=== PATIENT | female | born 1925 | race Caucasian/White ===

== ENCOUNTER 2016-04-05 22:01 | Emergency (ER) | payer OTHER, MEDICAID ==
[~2016-04-05] VITALS: Ht 160 cm; Wt 58.1 kg
[~2016-04-05 22:01] MED LIST: ALEN70TA2 OR; ASPI-247 OR; FAMO40TA49 OR; LEVO50TA53 OR; LISI-275 OR; METF-312 OR; METO-5 OR; SIMV40TA96 OR
[2016-04-05 22:50] LABS: Basophils # (auto) 0 uL; Basophils % (auto) 0.1 % (0.0-2.0); Eosinophils # (auto) 0.2 uL; Eosinophils % (auto) 1.8 % (0.0-7.0); Hematocrit 38.6 % (36.0-46.0); Hemoglobin 12.5 g/dL (12.2-16.2); Lymphocytes # (auto) 0.9 uL; Lymphocytes % (auto) 9.3 % (10.0-50.0); Mean Corpuscular Hemoglobin 29.1 pg (28.0-32.0); Mean Corpuscular Hgb Conc. 32.5 g/dL (32.0-36.0); Mean Corpuscular Volume 89.5 fL (80.0-100.0); Mean Platelet Volume 8.1 fL (7.4-10.4); Monocytes # (auto) 0.3 uL; Monocytes % (auto) 3.2 % (0.0-12.0); Neutrophils # (auto) 7.8 uL; Neutrophils % (auto) 85.6 % (37.0-80.0); Platelet Count (auto) 198 10^3/uL (140-450); Red Cell Distribution Width 13.2 % (11.6-16.0); White Blood Cell 9.2 10^3/uL (4.4-10.8)
[2016-04-05 23:10] LABS: INR 1.09 (0.9-1.15); Partial Thromboplastin Time 25.5 sec (22.64-33.71); Prothrombin Time 11.2 sec (9.37-12.3)
[2016-04-05 23:15] LABS: Albumin 3.5 g/dL (3.4-5.0); Calcium 8.8 mg/dL (8.5-10.1); Potassium 4.2 mmol/L (3.5-5.1)
[2016-04-05 23:24] LABS: Bilirubin, Total 0.3 mg/dL (0.2-1.0); Magnesium 1.8 mg/dL (1.6-2.6); Total Protein 7.2 g/dL (6.4-8.2)
[2016-04-06] MEDS ORDERED: MORPHINE SULF INJ 2 MG/ML SYRINGE 1ML IV ONE (03:30)
[2016-04-06] MEDS ORDERED: ONDANSETRON HCL 4 MG/2 ML VIAL IV ONE (03:30)
[2016-04-06] MEDS ORDERED: ASPirin 81 mg TAB PO ONE (03:30)
[2016-04-06 03:56] LABS: B-Type Natriuretic Peptide 924.15 pg/mL (0-100); Temperature: 21.9 C (20.0-25.0)
[2016-04-06 08:32] VITALS: BP 139/73
== END 2016-04-06 08:52 | disposition short-term general hospital (02) ==
LOC: ER 22:05
DX: R07.89 Other chest pain (principal); I50.9 Heart failure, unspecified; E11.9 Type 2 diabetes mellitus without complications; E78.5 Hyperlipidemia, unspecified; I10 Essential (primary) hypertension; E07.9 Disorder of thyroid, unspecified; Z90.710 Acquired absence of both cervix and uterus; Z98.61 Coronary angioplasty status; Z86.73 Personal history of transient ischemic attack (TIA), and cerebral infarction without residual deficits; Z90.89 Acquired absence of other organs
CPT/HCPCS: 36415; 71010; 80053; 82962; 83735; 83880; 84484; 85025; 85049; 85610; 85730; 93005; 96374; 96375; 99285; J2270; J2405

== ENCOUNTER 2016-08-07 19:00 | Emergency (ER) | payer MEDICAID, OTHER ==
[~2016-08-07] VITALS: Ht 157.5 cm; Wt 62.6 kg
[2016-08-07 20:09] LABS: Basophils # (auto) 0 uL; Basophils % (auto) 0.5 % (0.0-2.0); Eosinophils # (auto) 0.2 uL; Eosinophils % (auto) 3.9 % (0.0-7.0); Hematocrit 37.5 % (36.0-46.0); Hemoglobin 12.8 g/dL (12.2-16.2); Lymphocytes # (auto) 1.4 uL; Lymphocytes % (auto) 25.3 % (10.0-50.0); Mean Corpuscular Hemoglobin 30.1 pg (28.0-32.0); Mean Corpuscular Hgb Conc. 34.1 g/dL (32.0-36.0); Mean Corpuscular Volume 88.3 fL (80.0-100.0); Mean Platelet Volume 8.6 fL (7.4-10.4); Monocytes # (auto) 0.4 uL; Monocytes % (auto) 8.2 % (0.0-12.0); Neutrophils # (auto) 3.4 uL; Neutrophils % (auto) 62.1 % (37.0-80.0); Platelet Count (auto) 172 10^3/uL (140-450); Red Cell Distribution Width 13.5 % (11.6-16.0); White Blood Cell 5.4 10^3/uL (4.4-10.8)
[2016-08-07 20:24] LABS: BUN/Creatinine Ratio 27.6; Bilirubin, Total 0.3 mg/dL (0.2-1.0); Calcium 9.2 mg/dL (8.5-10.1)
[2016-08-07 20:29] LABS: Partial Thromboplastin Time 25.4 sec (22.64-33.71); Prothrombin Time 10.9 sec (9.37-12.3)
[2016-08-07 20:44] LABS: B-Type Natriuretic Peptide 548.67 pg/mL (0-100); Temperature: 23.5 C (20.0-25.0)
[2016-08-07] MEDS ORDERED: FUROSEMIDE 20 MG/2 ML VIAL IV ONE (21:15)
[2016-08-07 21:21] LABS: Urine RBC None Seen /hpf (0 - 4)
[2016-08-07 21:32] LABS: Urine Bilirubin Negative (Negative); Urine Blood Negative /uL (Negative); Urine Color Yellow (Yellow); Urine Glucose Normal (Normal); Urine Ketone Negative (Negative); Urine Nitrite Negative (Negative); Urine Squamous Epithelial Cell FEW /hpf (<5); Urine Urobilinogen Normal (Negative); Urine pH 5.5 (5.0-8.0)
[2016-08-07 22:00] VITALS: BP 142/75
[2016-08-07] MEDS ORDERED: ASPirin 81 mg TAB PO ONE (22:15)
== END 2016-08-07 22:15 | disposition home or self-care (01) ==
LOC: ER 19:03
DX: R79.89 Other specified abnormal findings of blood chemistry (principal); N39.0 Urinary tract infection, site not specified; I25.10 Atherosclerotic heart disease of native coronary artery without angina pectoris; I50.9 Heart failure, unspecified; I11.0 Hypertensive heart disease with heart failure; E11.9 Type 2 diabetes mellitus without complications; E78.5 Hyperlipidemia, unspecified; E07.9 Disorder of thyroid, unspecified; Z90.710 Acquired absence of both cervix and uterus; Z90.49 Acquired absence of other specified parts of digestive tract; Z88.1 Allergy status to other antibiotic agents; Z88.0 Allergy status to penicillin; Z88.2 Allergy status to sulfonamides
CPT/HCPCS: 36415; 71010; 80053; 81001; 82150; 83615; 83690; 83880; 84484; 85025; 85379; 85610; 85730; 93005; 96374; 99285; J1940

== ENCOUNTER 2016-11-02 18:09 | Emergency (ER) | payer OTHER ==
[~2016-11-02] VITALS: Ht 160 cm; Wt 58.1 kg
[~2016-11-02 18:09] MED LIST changes: -METF-312 OR; +METF-370 OR
[2016-11-02 18:52] LABS: Basophils # (auto) 0 uL; Basophils % (auto) 0.4 % (0.0-2.0); CONDITION Y; Eosinophils # (auto) 0.2 uL; Eosinophils % (auto) 3.4 % (0.0-7.0); Hemoglobin 12.6 g/dL (12.2-16.2); Lymphocytes # (auto) 1.2 uL; Lymphocytes % (auto) 24.7 % (10.0-50.0); Mean Corpuscular Hemoglobin 30.4 pg (28.0-32.0); Mean Corpuscular Hgb Conc. 34.2 g/dL (32.0-36.0); Mean Platelet Volume 8.2 fL (7.4-10.4); Monocytes # (auto) 0.3 uL; Monocytes % (auto) 5.8 % (0.0-12.0); Neutrophils # (auto) 3.2 uL; Neutrophils % (auto) 65.7 % (37.0-80.0); Platelet Count (auto) 196 10^3/uL (140-450); Red Cell Distribution Width 13.7 % (11.6-16.0); White Blood Cell 4.9 10^3/uL (4.4-10.8)
[2016-11-02 19:14] LABS: BUN/Creatinine Ratio 22.6; Calcium 9.1 mg/dL (8.5-10.1); Magnesium 2.4 mg/dL (1.6-2.6); Potassium 4.2 mmol/L (3.5-5.1)
[2016-11-02 19:27] LABS: Bilirubin, Total 0.5 mg/dL (0.2-1.0); Total Protein 7.8 g/dL (6.4-8.2)
[2016-11-02] MEDS ORDERED: ENALAPRILAT 1.25 MG/ML-1ML VIAL IV ONE (21:00)
[2016-11-02] MEDS ORDERED: ASPirin 81 mg TAB PO ONE (21:00)
[2016-11-02] MEDS ORDERED: NITROGLYCERIN 0.2MG/HR TOPICAL PATCH TD ONE (21:00)
[2016-11-02 21:30] LABS: INR 0.99 (0.9-1.15); Partial Thromboplastin Time 27.4 sec (22.64-33.71); Prothrombin Time 10.8 sec (9.37-12.3)
[2016-11-02 21:56] LABS: B-Type Natriuretic Peptide 964.83 pg/mL (0-100)
[2016-11-02 21:57] LABS: Temperature: 22.5 C (20.0-25.0)
[2016-11-03 02:13] VITALS: BP 127/61
== END 2016-11-03 00:01 | disposition other institution (70) ==
LOC: ER 18:10
DX: I25.119 Atherosclerotic heart disease of native coronary artery with unspecified angina pectoris (principal); I11.0 Hypertensive heart disease with heart failure; I50.9 Heart failure, unspecified; E78.5 Hyperlipidemia, unspecified; Z90.710 Acquired absence of both cervix and uterus; Z90.89 Acquired absence of other organs
CPT/HCPCS: 36415; 71010; 80053; 83735; 83880; 84484; 85025; 85610; 85730; 93005; 96374; 99291